=== PATIENT | female | born 1990 | race Two or more races ===

== ENCOUNTER 2017-05-19 00:29 | Emergency (ER) | payer BC, MEDICAID ==
[~2017-05-19] VITALS: Ht 165.1 cm; Wt 83.9 kg
[2017-05-19 00:40] VITALS: BP 132/86
== END 2017-05-19 04:40 | disposition home or self-care (01) ==
LOC: ER 00:29
DX: B35.9 Dermatophytosis, unspecified (principal); B35.4 Tinea corporis

== ENCOUNTER 2019-02-14 11:10 | Emergency (ER) | payer BC, MEDICAID ==
[~2019-02-14] VITALS: Ht 165.1 cm; Wt 81.6 kg
[2019-02-14 11:54] LABS: Basophils # (auto) 0 uL; Basophils % (auto) 0.4 % (0.0-2.0); Eosinophils # (auto) 0.1 uL; Eosinophils % (auto) 0.8 % (0.0-7.0); Hematocrit 43.5 % (36.0-46.0); Hemoglobin 14.5 g/dL (12.2-16.2); Lymphocytes # (auto) 1.2 uL; Lymphocytes % (auto) 13.2 % (10.0-50.0); Mean Corpuscular Hemoglobin 30.5 pg (28.0-32.0); Mean Corpuscular Hgb Conc. 33.4 g/dL (32.0-36.0); Mean Corpuscular Volume 91.2 fL (80.0-100.0); Monocytes # (auto) 0.6 uL; Monocytes % (auto) 6.2 % (0.0-12.0); Neutrophils # (auto) 7.5 uL; Neutrophils % (auto) 79.4 % (37.0-80.0); Platelet Count (auto) 175 10^3/uL (140-450); Red Blood Cells 4.78 10^6/uL (4.0-5.20); Red Cell Distribution Width 13.2 % (11.8-14.3); White Blood Cell 9.4 10^3/uL (4.4-10.8)
[2019-02-14 12:11] LABS: Potassium 3.8 mmol/L (3.5-5.1)
[2019-02-14 12:14] LABS: Calcium 8.8 mg/dL (8.5-10.1)
[2019-02-14 12:20] LABS: BUN/Creatinine Ratio 12.8; Bilirubin, Total 0.8 mg/dL (0.2-1.0); Total Protein 7.7 g/dL (6.4-8.2)
[2019-02-14 13:35] VITALS: BP 120/68
== END 2019-02-14 13:47 | disposition home or self-care (01) ==
LOC: ER 11:24
DX: N93.9 Abnormal uterine and vaginal bleeding, unspecified (principal)
CPT/HCPCS: 36415; 80053; 84702; 85025